=== PATIENT | male | born 1995 ===

== ENCOUNTER 2016-12-17 07:05 | Emergency (ER) | payer OTHER ==
[2016-12-17 07:20] VITALS: BP 116/69
[2016-12-17] MEDS ORDERED: Ondansetron INJ* 2 MG/ML VIAL IV ONE (07:32)
[2016-12-17] MEDS ORDERED: NS 0.9% 1000 ML* 1,000 ML IV ONE (07:32)
[2016-12-17] MEDS ORDERED: Ondansetron ODT TAB* 4 MG PO ONE (07:51)
--- NOTE | 2016-12-17 08:09 | UC ---
Osmar Young Adam, scribed for Hesham Gordon MD on 12/17/16 at 0733 . General HPI - HPI Summary HPI Summary: Pt is a 21 year old male presenting with nausea and vomiting. He began feeling nauseous at 23:00 last night and began vomiting at 01:00 this morning. He states that he has vomited approximately once every 30 minutes since then. He also feels feverish. Pt states that he ate some frozen food yesterday which he does not normally eat. He denies any abdominal pain or diarrhea. Last BM was yesterday. Pt denies any Hx of problems with nausea and vomiting. No recent abx. He recently returned [place] [facility] but denies any travel outside of the . Surgical Hx of hysterectomy 4 weeks ago and no complications since then. He takes testosterone. No other PMHx. No tobacco/alcohol. FMHx of cardiac disease. - History of Current Complaint Chief Complaint: UCGeneralIllness Stated Complaint: VOMITING Time Seen by Provider: 12/17/16 07:10 Hx Obtained From: Patient Onset/Duration: Sudden Onset, Lasting Hours, Still Present Timing: Constant Onset Severity: Moderate Current Severity: Moderate Character: Nausea and vomiting Associated Signs & Symptoms: Positive: Fever - "Feverish" - Allergy/Home Medications Allergies/Adverse Reactions: Allergies Allergy/AdvReac Type Severity Reaction Status Date / Time No Known Allergies Allergy Verified 12/17/16 07:11 Home Medications: Home Medications NK [No Home Medications Reported] 12/17/16 [History Confirmed 12/17/16] PMH/Surg Hx/FS Hx/Imm Hx - Surgical History Surgical History: Yes Surgery Procedure, Year, and Place: hysterectomy - Family History Known Family History: Positive: Cardiac Disease - Social History Occupation: Unemployed Lives: With Family Alcohol Use: None Substance Use Type: None Smoking Status (MU): Never Smoked Tobacco Review of Systems Constitutional: Fever - "Feverish" Gastrointestinal: Vomiting All Other Systems Reviewed And Are Negative: Yes Physical Exam Triage Information Reviewed: Yes Vital Signs: Initial Vital Signs Temp 97.7 F 12/17/16 07:12 Pulse 87 12/17/16 07:12 Resp 18 12/17/16 07:12 BP 116/69 12/17/16 07:12 Pulse Ox 97 12/17/16 07:12 - Additional Comments VITAL SIGNS: Reviewed. GENERAL: Patient is a thin transgender patient who is sitting uncomfortable in the stretcher due to continues nausea and vomiting. Patient is not in any acute respiratory distress. HEAD AND FACE: Normocephalic and atraumatic. EYES: PERRLA, EOMI x 2, No injected conjunctiva. EARS: Hearing grossly intact. Ear canals and tympanic membranes are WNL. MOUTH: Dry nasal and oral mucosa. NECK: Supple, trachea is midline, no adenopathy, no JVD. CHEST: Symmetric, no tenderness at palpation LUNGS: Clear to auscultation bilaterally. No wheezing or crackles. CVS: RRR,, S1 and S2 present, no murmurs or gallops appreciated. ABDOMEN: Soft, non-tender. No signs of distention. Positive bowel sounds. No rebound no guarding, and no masses palpated. No abdominal bruit or pulsations. Recent laparoscopic surgical scars are well healed. Clean, dry and intact. EXTREMITIES: FROM in all major joints, no edema, no cyanosis or clubbing. NEURO: Alert and oriented x 3. No acute neurological deficits. Speech is normal. SKIN: Dry and warm Course/Dx - Course Course Of Treatment: Pt is a 21 year old male presenting with nausea and vomiting. He began feeling nauseous at 23:00 last night and began vomiting at 01 :00 this morning. He states that he has vomited approximately once every 30 minutes since then. He also feels feverish. Pt states that he ate some frozen food yesterday which he does not normally eat. He denies any abdominal pain or diarrhea or constipation. Last BM was yesterday. He continues to pass gas. Pt denies any Hx of problems with nausea and vomiting. No recent abx. He recently [place] [facility] but denies any travel outside of the . Surgical Hx of hysterectomy 4 weeks ago and no complications since then. He takes testosterone. SInce patient had a recent abdominal surgery I offered the patient to be transferred to the ED to r/o SBO, Colitis, or any more serious intra-abdominal pathology. He declines transfer to the ED. Patient is afraid of needles therefore we were not able to give IV fluids or IF Zofran. We gave Zofran sublingual. Patient continues to be nauseous and vomiting. Now they accepted to go to the ED for further work and management. Patient is hemodynamically stable and Alert and Oriented x 3. Patient declined ambulance. Mother will drive patient to the ED. - Differential Dx - Multi-Symptom Differential Diagnoses: Other - Gastroenteritis, bowel obstruction, Colitis, gastritis Provider Diagnoses: Nause and vomiting Discharge - Discharge Plan Condition: Stable Disposition: TRANS HIGHER LVL OF CARE FAC Discharge Disposition Comment: To [facility] ED Patient Education Materials: Acute Nausea and Vomiting (ED) Forms: *School Release Referrals: Non Staff,Doctor [Primary Care Provider] - The documentation as recorded by the Osmar srinivasan Adam accurately reflects the service I personally performed and the decisions made by me, Hesham Gordon MD.
== END 2016-12-17 08:13 | disposition short-term general hospital (02) ==
LOC: UCEAST 07:05
DX: R11.2 Nausea with vomiting, unspecified (principal); R50.9 Fever, unspecified
CPT/HCPCS: 99202; A9270-GY; G0463; J2405

== ENCOUNTER 2016-12-17 08:41 | Emergency (ER) | payer OTHER ==
[2016-12-17 08:53] VITALS: BP 110/71
[2016-12-17] MEDS ORDERED: NS 0.9% 1000 ML* 2,000 ML IV ONE (09:17)
[2016-12-17 10:01] LABS: Hematocrit 55 % (42-52); Hemoglobin 17.7 g/dl (14.0-18.0); Mean Corpuscular HGB Conc 32 g/dl (31-36); Mean Corpuscular Hemoglobin 26 pg (27-31); Mean Corpuscular Volume 80 fL (80-94); Mean Platelet Volume 9 um3 (7.4-10.4); Red Blood Count 6.87 10^6/ul (4.0-5.4); Red Cell Distribution Width 16 % (10.5-15); White Blood Count 13.1 10^3/ul (3.5-10.8)
[2016-12-17] MEDS ORDERED: Ondansetron INJ* 2 MG/ML VIAL IV ONE (10:06)
[2016-12-17 10:17] LABS: ALT 28 U/L (7-52); AST 36 U/L (13-39); Alkaline Phosphatase 114 U/L (34-104); Anion Gap 10 mmol/L (2-11); BUN/Creatinine Ratio 13.7 (8-20); Blood Urea Nitrogen 13 mg/dL (6-24); C Reactive Protein < 1.00 mg/L (< 5.00); CO2 Carbon Dioxide 27 mmol/L (22-32); Calcium 10.8 mg/dL (8.6-10.3); Chloride 99 mmol/L (101-111); EGFR African American 126.4 (>60); EGFR Non-African American 98.2 (>60); Glucose 86 mg/dL (70-100); Potassium 4.9 mmol/L (3.5-5.0); Sodium 136 mmol/L (133-145); Total Protein 10.1 g/dL (6.4-8.9)
[2016-12-17 10:56] LABS: Albumin 6.1 g/dL (3.2-5.2)
[2016-12-17] MEDS ORDERED: PROCHLORPERAZINE INJ 5 MG/ML 2 ML VIAL IV PRN (12:35)
[2016-12-17 12:52] LABS: Urine Bilirubin Negative (Negative); Urine Glucose Negative (Negative); Urine Nitrite Negative (Negative)
--- NOTE | 2016-12-18 15:45 | ED ---
Ángel Young Karl, scribed for Parrish Simms MD on 12/17/16 at 0919 . Complex/Multi-Sys Presentation - HPI Summary HPI Summary: Pt is a 21 y/o male that presents to the ED c/o nausea/vomiting for the past 6 hours. [facility] after he reported c/o vomiting, abd pain, nausea, and sore throat. Pt stated that he feels "very dehydrated." Pt stated that the Zofran he [facility] at [facility] helped alleviate his symptoms. Pt denied diarrhea. Hx: hysterectomy (10/2016). - History Of Current Complaint Chief Complaint: EDNauseaVomitDiarrh Time Seen by Provider: 12/17/16 09:06 Hx Obtained From: Patient Onset/Duration: Gradual Onset, Lasting Hours, Still Present Timing: Constant, Hours Severity Currently: Mild Severity Initially: Moderate Location: Pain At: - abd pain Alleviating Factor(s): zofran Associated Signs And Symptoms: Positive: Nausea, Vomiting. Negative: Diarrhea - Allergies/Home Medications Allergies/Adverse Reactions: Allergies Allergy/AdvReac Type Severity Reaction Status Date / Time No Known Allergies Allergy Verified 12/17/16 08:46 PMH/Surg Hx/FS Hx/Imm Hx - Surgical History Surgery Procedure, Year, and Place: hysterectomy (10/2016) Infectious Disease History: No Infectious Disease History: Denies: Traveled Outside the [place] in Last 30 Days - Family History Known Family History: Positive: Cardiac Disease - Social History Alcohol Use: None Substance Use Type: Reports: None Smoking Status (MU): Never Smoked Tobacco Review of Systems Constitutional: Negative Eyes: Negative Positive: Sore Throat Cardiovascular: Negative Respiratory: Negative Positive: Abdominal Pain, Vomiting, Nausea. Negative: Diarrhea Genitourinary: Negative Musculoskeletal: Negative Skin: Negative Neurological: Negative Psychological: Normal All Other Systems Reviewed And Are Negative: Yes Physical Exam Triage Information Reviewed: Yes Vital Signs On Initial Exam: Initial Vitals Temp Pulse Resp BP Pulse Ox 98.6 F 75 15 110/71 99 12/17/16 08:47 12/17/16 08:47 12/17/16 08:47 12/17/16 08:47 12/17/16 08:47 Vital Signs Reviewed: Yes Appearance: Positive: Well-Appearing, No Pain Distress Skin: Positive: Warm, Skin Color Reflects Adequate Perfusion, Dry Head/Face: Positive: Normal Head/Face Inspection Eyes: Positive: Normal ENT: Positive: Normal ENT inspection Neck: Positive: Supple, Nontender Respiratory/Lung Sounds: Positive: Clear to Auscultation, Breath Sounds Present Cardiovascular: Positive: RRR Abdomen Description: Positive: Nontender, Soft Bowel Sounds: Positive: Present Musculoskeletal: Positive: Normal Neurological: Positive: Normal Psychiatric: Positive: Normal, Affect/Mood Appropriate Diagnostics - Vital Signs Vital Signs Temp Pulse Resp BP Pulse Ox 12/17/16 08:47 98.6 F 75 15 110/71 99 - Laboratory Lab Results: Lab Results 12/17/16 12/17/16 12/17/16 Range/Units 09:40 09:40 09:40 WBC 13.1 H (3.5-10.8) 10^3/ul RBC 6.87 H (4.0-5.4) 10^6/ul Hgb 17.7 (14.0-18.0) g/dl Hct 55 H (42-52) % MCV 80 (80-94) fL MCH 26 L (27-31) pg MCHC 32 (31-36) g/dl RDW 16 H (10.5-15) % Plt Count 231 (150-450) 10^3/ul MPV 9 (7.4-10.4) um3 Neut % (Auto) 89.5 H (38-83) % Lymph % (Auto) 5.3 L (25-47) % Wagoner % (Auto) 4.0 (1-9) % Eos % (Auto) 0.9 (0-6) % Baso % (Auto) 0.3 (0-2) % Absolute Neuts (auto) 11.8 H (1.5-7.7) 10^3/ul Absolute Lymphs (auto) 0.7 L (1.0-4.8) 10^3/ul Absolute Monos (auto) 0.5 (0-0.8) 10^3/ul Absolute Eos (auto) 0.1 (0-0.6) 10^3/ul Absolute Basos (auto) 0 (0-0.2) 10^3/ul Absolute Nucleated RBC 0.02 10^3/ul Nucleated RBC % 0.1 Sodium 136 (133-145) mmol/L Potassium 4.9 (3.5-5.0) mmol/L Chloride 99 L (101-111) mmol/L Carbon Dioxide 27 (22-32) mmol/L Anion Gap 10 (2-11) mmol/L BUN 13 (6-24) mg/dL Creatinine 0.95 (0.67-1.17) mg/dL Est GFR ( Amer) 126.4 (>60) Est GFR (Non-Af Amer) 98.2 (>60) BUN/Creatinine Ratio 13.7 (8-20) Glucose 86 (70-100) mg/dL Lactic Acid 0.9 (0.5-2.0) mmol/L Calcium 10.8 H (8.6-10.3) mg/dL Total Bilirubin 0.70 (0.2-1.0) mg/dL AST 36 (13-39) U/L ALT 28 (7-52) U/L Alkaline Phosphatase 114 H (34-104) U/L C-Reactive Protein < 1.00 (< 5.00) mg/L Total Protein 10.1 H (6.4-8.9) g/dL Albumin 6.1 H (3.2-5.2) g/dL Globulin 4.0 (2-4) g/dL Albumin/Globulin Ratio 1.5 (1-3) Urine Color Urine Appearance Urine pH (5-9) Ur Specific Bryant (1.010-1.030) Urine Protein (Negative) Urine Ketones (Negative) Urine Blood (Negative) Urine Nitrate (Negative) Urine Bilirubin (Negative) Urine Urobilinogen (Negative) Ur Leukocyte Esterase (Negative) Urine Glucose (Negative) 12/17/16 Range/Units 12:35 WBC (3.5-10.8) 10^3/ul RBC (4.0-5.4) 10^6/ul Hgb (14.0-18.0) g/dl Hct (42-52) % MCV (80-94) fL MCH (27-31) pg MCHC (31-36) g/dl RDW (10.5-15) % Plt Count (150-450) 10^3/ul MPV (7.4-10.4) um3 Neut % (Auto) (38-83) % Lymph % (Auto) (25-47) % Wagoner % (Auto) (1-9) % Eos % (Auto) (0-6) % Baso % (Auto) (0-2) % Absolute Neuts (auto) (1.5-7.7) 10^3/ul Absolute Lymphs (auto) (1.0-4.8) 10^3/ul Absolute Monos (auto) (0-0.8) 10^3/ul Absolute Eos (auto) (0-0.6) 10^3/ul Absolute Basos (auto) (0-0.2) 10^3/ul Absolute Nucleated RBC 10^3/ul Nucleated RBC % Sodium (133-145) mmol/L Potassium (3.5-5.0) mmol/L Chloride (101-111) mmol/L Carbon Dioxide (22-32) mmol/L Anion Gap (2-11) mmol/L BUN (6-24) mg/dL Creatinine (0.67-1.17) mg/dL Est GFR ( Amer) (>60) Est GFR (Non-Af Amer) (>60) BUN/Creatinine Ratio (8-20) Glucose (70-100) mg/dL Lactic Acid (0.5-2.0) mmol/L Calcium (8.6-10.3) mg/dL Total Bilirubin (0.2-1.0) mg/dL AST (13-39) U/L ALT (7-52) U/L Alkaline Phosphatase (34-104) U/L C-Reactive Protein (< 5.00) mg/L Total Protein (6.4-8.9) g/dL Albumin (3.2-5.2) g/dL Globulin (2-4) g/dL Albumin/Globulin Ratio (1-3) Urine Color Yellow Urine Appearance Cloudy Urine pH 5.0 (5-9) Ur Specific Bryant 1.025 (1.010-1.030) Urine Protein Negative (Negative) Urine Ketones 1+ H (Negative) Urine Blood Negative (Negative) Urine Nitrate Negative (Negative) Urine Bilirubin Negative (Negative) Urine Urobilinogen Negative (Negative) Ur Leukocyte Esterase Negative (Negative) Urine Glucose Negative (Negative) Result Diagrams: 12/17/16 09:40 12/17/16 09:40 Lab Statement: Any lab studies that have been ordered have been reviewed, and results considered in the medical decision making process. Complex Multi-Symp Course/Dx Course Of Treatment: Mitch Knowles presented with N/V all night in the context of having had a hysterectomy 3 weeks ago. He did C/O some abdominal soreness after vomiting so much but had no tenderness. His labs W/U was OK and he was hydrated here and treated with antiemetics. He had slow improvement here but went home improved. - Diagnoses Provider Diagnoses: ACUTE NAUSEA AND VOMITING Discharge - Discharge Plan Condition: Stable Disposition: HOME Prescriptions: Ondansetron ODT TAB* [Zofran Odt TAB*] 4 mg PO Q6H PRN #20 tab.odt PRN Reason: Nausea Patient Education Materials: Acute Nausea and Vomiting (ED) Forms: *School Release Referrals: [place] [facility] KIRAN Adkins [Primary Care Provider] - Additional Instructions: Please follow up with your primary care provider. Return to the emergency department for changing or worsening symptoms. The documentation as recorded by the Ángel srinivasan Karl accurately reflects the service I personally performed and the decisions made by me, Parrish Simms MD.
== END 2016-12-17 15:34 | disposition home or self-care (01) ==
LOC: ED 08:41
DX: R11.2 Nausea with vomiting, unspecified (principal)
CPT/HCPCS: 36415; 80053; 81003; 83605; 85025; 86140; 96374; 96375; 99202; 99282; A9270-GY; G0463; J0780; J2405